=== PATIENT | female | born 1965 | race Caucasian/White ===

== ENCOUNTER → 2017-01-04 | Outpatient (CLI) | payer BC ==
[~2017-01-04] MED LIST: ASPI1TAB83 PO; BUPR75TA8 PO; CALCTAB65 PO; FBR PO; FERR1TAB24 PO; GLIP-197 PO; LISI20TA3 PO; LPT/40 PO; METF1000 PO; MULTTAB58 PO; OMEG-112 PO; OXYC-57 PO; SERT-234 PO; ZNTT/150 PO
--- NOTE | 2017-01-04 07:54 | DIAGNOSTIC IMAGING REPORT ---
ABDOMINAL ULTRASOUND, RIGHT UPPER QUADRANT HISTORY: Abdominal pain. COMPARISON: None. FINDINGS: This exam was compromised by suboptimal penetration. Hepatic echogenicity is increased consistent with fatty infiltration. The liver is moderately enlarged. No biliary ductal dilatation is present. No gallstones are identified. There is no gallbladder wall thickening. The pancreatic body is normal. The head and tail are obscured. There is no right hydronephrosis. IMPRESSION: 1. Fatty infiltration of the liver and hepatomegaly. 2. No gallstones or biliary ductal dilatation. 3. Study compromised by suboptimal penetration. Partially obscured pancreas. Electronically signed by: Bernardino Goldberg M.D. 01/04/2017 7:52 AM Dictated Date/Time: 01/04/2017 7:41 AM
== END | disposition home or self-care (01) ==
LOC: C.ULTR 06:28
PROVIDERS: ATTEND Family Medicine
DX: R10.84 Generalized abdominal pain (principal)

== ENCOUNTER 2024-12-22 16:10 | Inpatient (IN) ==
[2024-12-22 17:55] LABS: Hematocrit (blood only) 45.9 % (37.0-47.0); Hemoglobin 15.1 g/dl (12.0-16.0); Mean Corpuscular Hemoglobin 28.6 pg (25.0-34.0); Mean Corpuscular Hgb Conc 32.9 g/dL (32.0-36.0); Mean Corpuscular Volume 86.9 fL (80.0-100.0); Mean Platelet Volume 10.7 fL (9.4-12.4); Platelet Count 319 K/uL (130-400); RDW Coefficient of Variation 14.4 % (11.5-14.5); RDW Standard Deviation 44.6 fL (36.4-46.3); Red Blood Count 5.28 M/uL (4.20-5.40)
--- NOTE | 2024-12-22 17:59 | Emergency Department Note ---
Impression & Plan Acute non-ST elevation myocardial infarction (NSTEMI), Elevated troponin I level, Nausea & vomiting ED Provider Note NAME: Sid SAEZ AGE: 59 SEX: F : 1965 ARRIVES VIA: Walk-In INFORMANT: Patient, ED PROVIDER(S): Anshul Mcgill DO CHIEF COMPLAINT: Vomiting HPI: The patient is a 59-year-old female who presented to the emergency department with family for an evaluation of nausea vomiting and diarrhea. The patient started having nausea and vomiting over the course of the day. She started having symptoms at 9:00 this morning. Route the afternoon she did start noticing some abdominal discomfort which was crampy and intermittent. It was only associated with the episode before vomiting. The patient also has chest pain. She describes the chest pain that started this afternoon and was constant. She denies having any difficulty breathing or leg swelling. She denies having any rectal bleeding. ROS: See above HPI for pertinent positives & negatives. A total of 10 systems reviewed and were otherwise negative. PAST MEDICAL HISTORY: See Below PAST SURGICAL HISTORY: See Below FAMILY HISTORY: See Below SOCIAL HISTORY: See Below HOME MEDICATIONS: See Below ALLERGIES: See Below VITALS: See Below PHYSICAL EXAMINATION: GENERAL: The patient is awake and alert. The patient is very anxious and appears to be uncomfortable. EYES: The conjunctivae are clear. The pupils are round and reactive. EARS, NOSE, MOUTH AND THROAT: The nose is without any evidence of any deformity. NECK: The neck is nontender and supple. RESPIRATORY: Normal respiratory effort is noted there is no evidence of wheezing rhonchi or rales CARDIOVASCULAR: Regular rate and rhythm noted there no murmurs rubs or gallops normal S1 normal S2. GASTROINTESTINAL: The abdomen is soft. Abdomen is nontender. MUSCULOSKELETAL/EXTREMITIES: There is no evidence of gross deformity full range of motion is noted in the hips and shoulders. SKIN: There is no obvious evidence of any rash. There are no petechiae, pallor or cyanosis noted. NEUROLOGIC: Patient is awake alert and oriented x3 MEDICAL DECISION MAKING: The patient is a 59-year-old female who presented to the emergency department for nausea and vomiting. The patient does have a history of type 2 diabetes. She also describes some degree of chest pain which began after she was vomiting multiple times. The patient had an EKG done in triage. I did evaluate the EKG and was it appears to be consistent with ST segment abnormalities. There is no definite ST segment elevation MS although with the bundle branch block pattern noted it may be difficult to interpret this EKG. There are some definite changes compared to the old EKG. I discussed the patient's presentation with the outreach consultant. Given the patient's nausea and vomiting we will treat the patient's pain and reevaluate to determine if this truly does represent an ST segment elevation MS versus an NSTEMI. The patient was reevaluated. She was feeling better. I discussed the patient's laboratory and radiographic studies with her. She was found to have an elevated troponin. I do feel this likely represents an underlying cardiac abnormality. I discussed her condition with the on-call [facility]. I did order heparin. Triage Nursing notes reviewed. Prior medical records reviewed Vital Signs: reviewed and remarkable for no significant abnormalities Differential diagnosis: Gastroenteritis, food borne illness, infections, appendicitis, diverticulitis, inflammatory bowel disease, obstruction, GI bleed, biliary pathology, volvulus, as well as other pathologies. ER treatment provided: See below Diagnostics interpreted by me: ECG: EKG was obtained in the emergency department. My interpretation is normal sinus rhythm at 100 bpm. A right bundle branch block pattern was noted. ST segment elevation was noted in the inferior and low lateral leads. This was compared to a tracing from April 13, 2023. The ST elevation is new compared to the previous tracing. Cardiac Monitoring: An order was placed for continuous cardiac monitoring. The monitor shows a rate of 98 bpm with sinus rhythm. Laboratory studies: As stated above and show below. Imaging studies: See below. Radiographic imaging was reviewed by myself Consultation(s): I discussed this case with Dr. Jensen who is on for interventional cardiology. I discussed this case with Dr. Gibbs who is on-call for the [facility]. ED COURSE: Procedures: none Critical Care: I have personally spent greater than 40 minutes of critical care time in the direct management of this patient. This includes bedside care, interpretation of diagnostic studies, and testing, discussion with consultants, patient, and family members, and other required patient management activities. This 40 minutes is in excess of all separately billable procedures. 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 Pilar cyst Obesity, Class III, BMI 40-49.9 (morbid obesity) Carpal tunnel syndrome of left wrist Achilles tendinitis, left leg Mixed hyperlipidemia (Chronic) Hypertension Medical History Family history of reaction to anesthesia father has a very difficult time coming out of anesthesia Hypertension Abdominal bloating Abdominal fullness Anxiety History of anesthesia reaction difficulty waking GERD (gastroesophageal reflux disease) Diabetes mellitus, type 2 IDDM Depression Hyperlipidemia Sleep apnea cpap Surgical History History of tenotomy (~06/2023) left achilles Hx of bilateral cataract extraction History of abdominal surgery removal of gastric band Hx of laparoscopic gastric banding History of dilatation and curettage History of carpal tunnel surgery of right wrist History of lumbar discectomy History of lumbar spinal fusion hardware in place History of colonoscopy History of esophagogastroduodenoscopy (EGD) History of tooth extraction History of wisdom tooth extraction Family History Father Family history of reaction to anesthesia severe difficulty waking, low heart rate Family history of diabetes mellitus Brother Family history of diabetes mellitus Aunt Family history of diabetes mellitus Mother Family hx of colon cancer Social History Smoking Status: Never smoker Second Hand Exposure: No; Do You Dip or Chew Tobacco: No; Hx Alcohol Use: Yes Alcohol type: wine Hx Substance Use: No Preferred Language: Cameroonian Communication Ability: Effective Terrazzo Worker Required: No Beliefs That Will Affect Care: None Current Living Situation: Family Current Living Situation Comment: Lives with and mother Feels Safe at Home: Yes Assistive Devices: CPAP and Glasses Allergies Allergies Allergy/AdvReac Type Severity Reaction Status Date / Time No Known Allergies Allergy Unknown Verified 12/12/24 08:34 Home Meds Home Medications Medication Instructions Recorded Confirmed omega-3 acid ethyl esters 1 gram 1 cap PO QPM 11/29/18 12/22/24 capsule bupropion HCl 75 mg tablet 75 mg PO QAM 10/07/21 12/22/24 famotidine 40 mg tablet 40 mg PO QPM 10/07/21 12/22/24 sertraline 50 mg tablet 50 mg PO QPM 10/07/21 12/22/24 cyanocobalamin (vitamin B-12) 1,000 mcg PO QPM 11/23/21 12/22/24 1,000 mcg tablet (Vitamin B-12) atorvastatin 40 mg tablet 40 mg PO QPM 02/07/22 12/22/24 blood sugar diagnostic (Accu-Chek 05/17/22 12/22/24 Guide test strips) aspirin 81 mg tablet,delayed 81 mg PO QAM 06/27/23 12/22/24 release lisinopril 40 mg tablet 40 mg PO QAM 06/27/23 12/22/24 insulin glargine U-300 conc 300 70 unit subcut QPM 12/22/24 12/22/24 unit/mL (1.5 mL) subcutaneous pen (Tousadie SoloStar U-300 Insulin) [id number] 1 tab PO QAM 12/22/24 12/22/24 tablet (Multivitamin 50 Plus tablet) pantoprazole 40 mg tablet,delayed 40 mg PO QAM 12/22/24 12/22/24 release Previous Rx's Medication Instructions Recorded acetone (urine) test (Ketostix #25 ea 02/07/22 strips) metformin 500 mg tablet,extended 1,000 mg (2 x 500 mg) PO QPM #180 12/06/23 release 24 hr tabs semaglutide 1 mg/dose (4 mg/3 mL) 1 mg (0.75 mL) subcut Q7D #3 mL 02/21/24 subcutaneous pen injector pen needle, diabetic 32 gauge x #200 ea 05/15/24 1/4" (BD Ultra-Fine Micro Pen Needle) blood-glucose transmitter (Dexcom #1 ea 06/24/24 G6 Transmitter device) insulin aspart U-100 100 unit/mL 75 unit (0.75 mL) subcut UD #30 mL 08/25/24 (3 mL) subcutaneous pen (Novolog FlexPen U-100 Insulin aspart) blood-glucose sensor (Dexcom G6 #9 ea 10/29/24 Sensor device) Results & Data (ED) Vital Signs Vital Signs - 24 hr 12/22/24 17:19 12/22/24 18:12 12/22/24 18:30 Temperature 36.0 C L Temperature Source Temporal Artery Scan Pulse Rate 97 H 94 H 92 H Pulse Rate from SpO2 Sensor Respiratory Rate 20 18 Respiratory Effort / Characteristics Non-Labored Spontaneous Respiratory Depth Normal Respiratory Pattern Regular Blood Pressure 156/88 H 151/90 H Blood Pressure Mean 110 122 Pulse Oximetry 97 Oxygen Delivery Method Room Air Sepsis Recent Fever Within 48 Hours No Sepsis New/Unexplained Change in Mental Status No Sepsis Action Taken by Nursing No Action Required 12/22/24 18:45 12/22/24 19:00 12/22/24 20:06 Temperature Temperature Source Pulse Rate 98 H 99 H 100 H Pulse Rate from SpO2 Sensor 100 H Respiratory Rate 17 18 21 Respiratory Effort / Characteristics Respiratory Depth Respiratory Pattern Blood Pressure 144/95 H 149/94 H 132/84 Blood Pressure Mean 113 112 100 Pulse Oximetry 95 95 Oxygen Delivery Method Room Air Room Air Sepsis Recent Fever Within 48 Hours Sepsis New/Unexplained Change in Mental Status Sepsis Action Taken by Long Term Medications Current Medication List: was personally reviewed by me Laboratory Data Attestation: I reviewed the patient's lab results. 12/22/24 17:31 12/22/24 17:31 Lab Results 12/22/24 12/22/24 Range/Units 17:31 19:23 WBC 17.90 H (4.8-10.8) K/ul RBC 5.28 (4.20-5.40) M/uL Hgb 15.1 (12.0-16.0) g/dl Hct 45.9 (37.0-47.0) % MCV 86.9 (80.0-100.0) fL MCH 28.6 (25.0-34.0) pg MCHC 32.9 (32.0-36.0) g/dL RDW Std Deviation 44.6 (36.4-46.3) fL RDW Coeff of Landry 14.4 (11.5-14.5) % Plt Count 319 (130-400) K/uL MPV 10.7 (9.4-12.4) fL Immature Gran % (Auto) 0.4 % Neut % (Auto) 94.5 % Lymph % (Auto) 1.5 % George % (Auto) 3.3 % Eos % (Auto) 0.1 % Baso % (Auto) 0.2 % Neut # (Auto) 16.93 H (1.40-6.50) K/uL Lymph # (Auto) 0.26 L (1.20-3.40) K/uL George # (Auto) 0.59 (0.11-0.59) K/uL Eos # (Auto) 0.01 (0.00-0.50) K/uL Baso # (Auto) 0.04 (0.00-0.20) K/uL Immature Gran # (Auto) 0.07 (0.01-0.20) K/uL Toxic Vacuolation 1+ Polychromasia 1+ Sodium 137 (136-145) mmol/L Potassium 5.0 (3.5-5.1) mmol/L Chloride 101 (98-107) mmol/L Carbon Dioxide 27 (21-32) mmol/L Anion Gap 9 (3-11) BUN 23 (6-23) mg/dl Creatinine 0.96 (0.6-1.2) mg/dl Est Cr Clr Drug Dosing Not Reportable eGFR 67.31 BUN/Creatinine Ratio 24.0 H (10-20) Glucose 243 H (70-99(Fasting)) mg/dl Calcium 9.6 (8.6-10.3) mg/dl Total Bilirubin 0.7 (0.2-1.0) mg/dl AST 24 (13-39) U/L ALT 31 (7-52) U/L Alkaline Phosphatase 81 (34-104) U/L Troponin I High Sens 282.4 H* (0-14) pg/ml Total Protein 7.3 (6.0-8.3) gm/dl Albumin 4.5 (3.4-5.0) gm/dl Globulin 2.8 (2.5-4.0) gm/dl Albumin/Globulin Ratio 1.6 (0.9-2) Lipase 9 L (11-82) U/L Urine Color Dark Yellow Urine Appearance Clear (Clear) Urine pH 6.0 (4.5-7.5) Ur Specific [place] 1.031 H (1.000-1.030) Urine Protein 1+ H (Negative) Urine Glucose (UA) Negative (Negative) Urine Ketones Trace H (Negative) Urine Blood Negative (Negative) Urine Nitrite Negative (Negative) Urine Bilirubin Negative (Negative) Urine Urobilinogen Negative (Negative) Ur Leukocyte Esterase Negative (Negative) Urine WBC (Auto) 0-5 (0-5) /hpf Urine RBC (Auto) 0-2 (0-2) /hpf U Hyaline Cast (Auto) 0-2 (0-2) /lpf U Epithel Cells (Auto) 0-2 (0-2) /hpf Urine Bacteria (Auto) None Seen (None Seen) Administered Medications Heparin Sodium/Dextrose (Heparin 26378 Unit/500 Ml D5w) 25,000 units in 500 mls @ 19 mls/hr IV .Q24H CINDI; Protocol Stop: 01/21/25 20:14 Last Admin: 12/22/24 20:59 Dose: 950 units/hr, 19 mls/hr Documented By: FELIX Co-signed By: ESTRADA Discontinued Medications Aspirin (Aspirin Chew 324 Mg) 324 mg PO NOW STA Stop: 12/22/24 17:49 Last Admin: 12/22/24 18:24 Dose: Not Given Documented By: ROQUE Aspirin (Aspirin 300 Mg Supp) 300 mg KS ONE ONE Stop: 12/22/24 17:56 Last Admin: 12/22/24 18:16 Dose: 300 mg Documented By: ROQUE Heparin Sodium/Dextrose (Heparin Iv Adult Wt-Based Low-Dose *No* Initial Bolus Protocol) 1 each IV ONE STA; Protocol Stop: 12/22/24 19:56 Last Admin: 12/22/24 20:48 Dose: Not Given Documented By: FELIX Sodium Chloride (Nss) 1,000 mls @ 999 mls/hr IV .Q1H1M ONE Stop: 12/22/24 18:41 Last Infusion: 12/22/24 20:55 Dose: Infused Documented By: Admin: 12/22/24 18:13 Dose: 999 mls/hr Documented By: ROQUE Morphine Sulfate (Morphine Sulfate 4 Mg/Ml 1 Ml Carp\\Vial) 4 mg IV NOW STA Stop: 12/22/24 17:56 Last Admin: 12/22/24 18:14 Dose: 4 mg Documented By: ROQUE Ondansetron HCl (Ondansetron Inj 2 Mg/Ml 2 Ml Vial) 4 mg IV NOW STA Stop: 12/22/24 17:38 Last Admin: 12/22/24 18:14 Dose: 4 mg Documented By: ROQUE Imaging Data Attestation: I personally reviewed and interpreted this imaging study as follows: My Impression: 1 view chest x-ray was obtained in the emergency department. My interpretation is no free air or definite infiltrate, final report below. Radiologist's Impression: Chest X-Ray 12/22/24 19:33 Exam(s): XR CXR 1 VIEW EXAM: XR Chest, 1 View CLINICAL HISTORY: Reason for exam: chest pain. TECHNIQUE: Frontal view of the chest. COMPARISON: No relevant prior studies available. FINDINGS: Lungs: No consolidation. No overt edema. Pleural space: No pleural effusion. No pneumothorax. Heart: Unremarkable. No cardiomegaly. IMPRESSION: No acute cardiopulmonary abnormality. Electronically signed by: Connor Ordaz MD 12/22/24 20:30 PM KUB X-Ray 12/22/24 19:33 Exam(s): XR KUB EXAM: XR Abdomen, 1 View CLINICAL HISTORY: Reason for exam: vomiting. TECHNIQUE: Frontal supine view of the abdomen/pelvis. COMPARISON: No relevant prior studies available. FINDINGS: Gastrointestinal tract: Nonobstructive bowel gas pattern. Bones/joints: Postsurgical changes in the lumbar spine. IMPRESSION: Nonobstructive bowel gas pattern. Electronically signed by: Connor Ordaz MD 12/22/24 20:32 PM Discharge Plan Visit Data Chief Complaint: Vomiting Stated Complaint: THROWING UP, DIARRHEA, BURNING IN CHEST/ARMS ED Provider: Anshul Mcgill Discharge Problem: Acute non-ST elevation myocardial infarction (NSTEMI), Elevated troponin I level, Nausea & vomiting Patient Disposition: Being Evaluated by Hospitalist Forms Stand Alone Forms: My [facility] Arrively Prescriptions Prescriptions: No Action semaglutide 1 mg/dose (4 mg/3 mL) pen injector 1 mg subcut Q7D Qty: 3 12RF Patient Comments: mondays Rx Instructions: sunday (DME) pen needle, diabetic [BD Ultra-Fine Micro Pen Needle] 32 gauge x 1/4" needle See Rx Instructions .Route Qty: 200 11RF Rx Instructions: Use with Insulin 4 times a day (DME) Dexcom G6 Transmitter Device See Rx Instructions .Route Qty: 1 3RF Rx Instructions: Change every 90 days insulin aspart U-100 [Novolog FlexPen U-100 Insulin] 100 unit/mL (3 mL) insulin pen 75 unit subcut UD MDD 75 U Qty: 30 5RF Rx Instructions: TDD: 75 U in divided doses with meals. Breakfast 16 units, lunch 24 units, supper 30 units, + correction factor of 1 unit for every 50 points over 200 (DME) Dexcom G6 Sensor Device See Rx Instructions .Route Qty: 9 3RF Rx Instructions: Change every 10 days bupropion HCl 75 mg tablet 75 mg PO QAM famotidine 40 mg tablet 40 mg PO QPM sertraline 50 mg tablet 50 mg PO QPM (DME) Accu-Chek Guide test strips Strip See Rx Instructions .Route Rx Instructions: Test blood sugar once daily PRN metformin 500 mg tablet extended release 24 hr 1,000 mg PO QPM Qty: 180 2RF atorvastatin 40 mg tablet 40 mg PO QPM (DME) Ketostix Strip See Rx Instructions .ROUTE .MEDSUPPLY Qty: 25 3RF Rx Instructions: Test if Glucose over 375 omega-3 acid ethyl esters 1 gram Capsule 1 cap PO QPM cyanocobalamin (vitamin B-12) [Vitamin B-12] 1,000 mcg Tablet 1,000 mcg PO QPM aspirin 81 mg tablet,delayed release (DR/EC) 81 mg PO QAM lisinopril 40 mg tablet 40 mg PO QAM Multivitamin 50 Plus Tablet 1 tab PO QAM pantoprazole 40 mg Tablet,Delayed Release (Dr/Ec) 40 mg PO QAM insulin glargine U-300 conc [Toujeo SoloStar U-300 Insulin] 300 unit/mL (1.5 mL) insulin pen 70 unit subcut QPM Referrals Referrals: Tank Gutierrez, [Primary Care Provider] -
[2024-12-22 18:11] LABS: Alanine Aminotransferase 31 U/L (7-52); Albumin Globulin Ratio 1.6 (0.9-2); Albumin Level 4.5 gm/dl (3.4-5.0); Alkaline Phosphatase 81 U/L (34-104); Anion Gap 9 (3-11); Aspartate Aminotransferase 24 U/L (13-39); Bilirubin,Total 0.7 mg/dl (0.2-1.0); Blood Urea Nitrogen 23 mg/dl (6-23); Calcium 9.6 mg/dl (8.6-10.3); Carbon Dioxide 27 mmol/L (21-32); Chloride 101 mmol/L (98-107); Globulin 2.8 gm/dl (2.5-4.0); Glucose 243 mg/dl (70-99(Fasting)); Lipase 9 U/L (11-82); Sodium 137 mmol/L (136-145); Total Protein 7.3 gm/dl (6.0-8.3)
[2024-12-22] MEDS: SODIUM CHLORIDE 0.9% 1,000 ML IV ONE (18:13)
[2024-12-22] MEDS: ONDANSETRON INJ 2 MG/ML 2 ML VIAL IV STA (18:14)
[2024-12-22] MEDS: MoRPHine SULFATE 4 MG/ML 1 ML CARP\\VIAL IV STA (18:14)
[2024-12-22] MEDS: ASPIRIN 300 MG SUPP PR ONE (18:16)
[2024-12-22 18:19] LABS: Basophils # (auto) 0.04 K/uL (0.00-0.20); Basophils % (auto) 0.2 %; Eosinophils # (auto) 0.01 K/uL (0.00-0.50); Eosinophils % (auto) 0.1 %; Immature Granulocytes # (auto) 0.07 K/uL (0.01-0.20); Immature Granulocytes % (auto) 0.4 %; Lymphocytes # (auto) 0.26 K/uL (1.20-3.40); Lymphocytes % (auto) 1.5 %; Monocytes # (auto) 0.59 K/uL (0.11-0.59); Monocytes % (auto) 3.3 %; Neutrophils # (auto) 16.93 K/uL (1.40-6.50); Neutrophils % (auto) 94.5 %; Polychromasia 1+; Toxic Vacuolation 1+
[2024-12-22] MEDS: ASPIRIN CHEW 324 MG PO STA (18:24)
[2024-12-22 19:53] LABS: Troponin I High Sensitivity 282.4 pg/ml (0-14)
[2024-12-22 19:57] LABS: Appearance Urine Clear (Clear); Bacteria Urine Automated None Seen (None Seen); Bilirubin Urine Negative (Negative); Blood Urine Negative (Negative); Cast Urine Automated 0-2 /lpf (0-2); Color Urine Dark Yellow; Epithelial Cell Urine Auto 0-2 /hpf (0-2); Glucose Urine UA Negative (Negative); Ketones Urine Trace (Negative); Leukocyte Esterase Urine Negative (Negative); Nitrite Urine Negative (Negative); Protein Urine 1+ (Negative); RBC Urine Automated 0-2 /hpf (0-2); Specific Gravity Urine 1.031 (1.000-1.030); Urobilinogen Urine Negative (Negative); WBC Urine Automated 0-5 /hpf (0-5)
--- NOTE | 2024-12-22 20:31 | XRay Report ---
Exam(s): XR CXR 1 VIEW EXAM: XR Chest, 1 View CLINICAL HISTORY: Reason for exam: chest pain. TECHNIQUE: Frontal view of the chest. COMPARISON: No relevant prior studies available. FINDINGS: Lungs: No consolidation. No overt edema. Pleural space: No pleural effusion. No pneumothorax. Heart: Unremarkable. No cardiomegaly. IMPRESSION: No acute cardiopulmonary abnormality. Electronically signed by: Connor Ordaz MD 12/22/24 20:30 PM
--- NOTE | 2024-12-22 20:34 | XRay Report ---
Exam(s): XR KUB EXAM: XR Abdomen, 1 View CLINICAL HISTORY: Reason for exam: vomiting. TECHNIQUE: Frontal supine view of the abdomen/pelvis. COMPARISON: No relevant prior studies available. FINDINGS: Gastrointestinal tract: Nonobstructive bowel gas pattern. Bones/joints: Postsurgical changes in the lumbar spine. IMPRESSION: Nonobstructive bowel gas pattern. Electronically signed by: Connor Ordaz MD 12/22/24 20:32 PM
[2024-12-22] MEDS: Heparin IV Adult Wt-Based Low-Dose *NO* INITIAL Bolus Protocol IV STA (20:48)
[2024-12-22] MEDS: HEPARIN 25000 UNIT/500 ML D5W 25,000 UNITS/500 ML BAG IV SCH (20:59)
--- NOTE | 2024-12-22 21:26 | History & Physical Report ---
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 ED evaluation reveals CBC WBC 17.90, CMP with ratio to 24, lipase 9; initial troponin 282.4, pending repeat; PT/INR pending; CXR without acute findings, KUB with nonobstructive bowel gas patterns; EKG NSR, RBBB, rate around 100 bpm. Provided with NSS 1L, Zofran, morphine, aspirin, and started on heparin while in ED. #Chest pain/NSTEMI Chest pain started around 1400 after multiple episodes of N/V, radiation to R arm and back (between shoulder blades); duration of symptoms vary; described as chest pressure and with burning sensation down R arm. At time of admission, CP free but having some tightness in chest. ED provider and cardiology team discussed case, recommended admission with no plans for Transmitter Tester at time of admi ssion given current findings. - EKG at arrival NSR w/ RBBB and rate 100 bpm; Trop #1 - 282.4, trop #2 3207, trend to peak - CBC w/ leukocytosis (17.9k); PT/INR 11/; Mg pending; echo pending - Lipid panel (11/2024) total 121, LDL 62, HDL 41, TG 101; continue atorvastatin - Continue ASA daily; continue lisinopril - Heparin started in ED- continue - Cardiology consulted - appreciate input + recs #Nausea/Vomiting N/V x ~ 12-13x the day of arrival; no known contacts and no recent food intake concerning for illness - CBC w/ leukocytosis (17.9k), CMP grossly WNL- CBC, BMP am - KUB nonobstructive pattern - Pending stool biofire - IVF given in ED #T2DM H/o DMT2; at home regimen basaglar 70U, Novolog (16U breakfast, 24U lunch, 30U dinner), ozempic 1mg, metformin 1000mg - Hold outpatient regimen - Most recent A1C (11/2024) 7% - SSI with target BSG range 110-140mg/dL, CF 10, carb ratio 3; glargine 46 U BID - BSG ACHS if eating, q6h if npo - Pharm glycemic management consult placed, appreicate input- Adjust regimen as needed #HLD- Atorvastatin #HTN- Lisinopril #JOSH- CPAP, continue #GERD- Famotidine, pantoprazole #Depression- Sertraline, bupropion Dispo: Admit, PCU VTE Prophylaxis: Heparin This document was dictated utilizing [employer] Please excuse any grammatical errors that may be secondary to use of this software. Admission and Anticipated Discharge Date Admission Date: 12/22/2024 History of Present Illness Chief Complaint: Chest pain Primary Care Provider: Tank Gutierrez DO 59-year-old female PMHx HTN, GERD, T2DM, HLD, sleep apnea with CPAP, and depression presenting for chest pain associated N/V. Vomiting began at 0900 the day of arrival, occurring approximately 12-13 times throughout the day with the most recent occurrence being 1430. Around 1400, patient started to develop chest pain in her central chest which felt like a pressure/tightness and was an 8-9 out of 10 on the pain scale at its maximum. The pain radiated to her R arm and had a burning sensation. Also had radiation of pain between shoulder blades. Had had episodes of diarrhea, abdominal pain occurring just prior to e pisodes of vomiting. Patient states that she was not exposed to any sick contacts, did not eat anything additionally extremitas. Current complaint is a patient states she is still having some tightness in her chest but that has resolved some since having pain medications. Also feels weak from multiple episodes of vomiting and diarrhea. Patient states she has not had this happen before. States that she called her PCP who encouraged her to come to the ED because she was having chest pain that was radiating. ED evaluation reveals CBC WBC 17.90, CMP with ratio to 24, lipase 9; initial troponin 282.4, pending repeat; PT/INR pending; CXR without acute findings, KUB with nonobstructive bowel gas patterns; EKG NSR, RBBB, rate around 100 bpm. Provided with NSS 1L, Zofran, morphine, aspirin, and started on heparin while in ED. Please see Dr. Gibbs's attestation for adjustments/additions to treatment plan. Allergies Allergy/AdvReac Type Severity Reaction Status Date / Time No Known Allergies Allergy Unknown Verified 12/12/24 08:34 Home Medications Medication Instructions Recorded Confirmed Type omega-3 acid ethyl esters 1 gram 1 cap PO QPM 11/29/18 12/22/24 History capsule bupropion HCl 75 mg tablet 75 mg PO QAM 10/07/21 12/22/24 History famotidine 40 mg tablet 40 mg PO QPM 10/07/21 12/22/24 History sertraline 50 mg tablet 50 mg PO QPM 10/07/21 12/22/24 History cyanocobalamin (vitamin B-12) 1,000 mcg PO QPM 11/23/21 12/22/24 History 1,000 mcg tablet (Vitamin B-12) acetone (urine) test (Ketostix #25 ea 02/07/22 12/22/24 Rx strips) atorvastatin 40 mg tablet 40 mg PO QPM 02/07/22 12/22/24 History blood sugar diagnostic (Accu-Chek 05/17/22 12/22/24 History Guide test strips) aspirin 81 mg tablet,delayed 81 mg PO QAM 06/27/23 12/22/24 History release lisinopril 40 mg tablet 40 mg PO QAM 06/27/23 12/22/24 History metformin 500 mg tablet,extended 1,000 mg (2 x 500 mg) PO QPM #180 12/06/23 12/22/24 Rx release 24 hr tabs semaglutide 1 mg/dose (4 mg/3 mL) 1 mg (0.75 mL) subcut Q7D #3 mL 02/21/24 12/22/24 Rx subcutaneous pen injector pen needle, diabetic 32 gauge x #200 ea 05/15/24 12/22/24 Rx 1/4" (BD Ultra-Fine Micro Pen Needle) blood-glucose transmitter (Dexcom #1 ea 06/24/24 12/22/24 Rx G6 Transmitter device) insulin aspart U-100 100 unit/mL 75 unit (0.75 mL) subcut UD #30 mL 08/25/24 12/22/24 Rx (3 mL) subcutaneous pen (Novolog FlexPen U-100 Insulin aspart) blood-glucose sensor (Dexcom G6 #9 ea 10/29/24 12/22/24 Rx Sensor device) insulin glargine U-300 conc 300 70 unit subcut QPM 12/22/24 12/22/24 History unit/mL (1.5 mL) subcutaneous pen (Toujeo SoloStar U-300 Insulin) [id number] 1 tab PO QAM 12/22/24 12/22/24 History tablet (Multivitamin 50 Plus tablet) pantoprazole 40 mg tablet,delayed 40 mg PO QAM 12/22/24 12/22/24 History release Past Med/Surg History Problem List (Updated 12/22/24 @ 21:29 by Molly Stacy PA-C) Chest pain Nausea & vomiting (Acute) Elevated troponin I level (Acute) Acute non-ST elevation myocardial infarction (NSTEMI) (Acute) Fatty liver Dyskinesis of right scapula Calcific tendonitis of left shoulder Adhesive capsulitis 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 Pilar cyst Obesity, Class III, BMI 40-49.9 (morbid obesity) Carpal tunnel syndrome of left wrist Achilles tendinitis, left leg Mixed hyperlipidemia (Chronic) Hypertension Medical History Family history of reaction to anesthesia father has a very difficult time coming out of anesthesia Hypertension Abdominal bloating Abdominal fullness Anxiety History of anesthesia reaction difficulty waking GERD (gastroesophageal reflux disease) Diabetes mellitus, type 2 IDDM Depression Hyperlipidemia Sleep apnea cpap Surgical History History of tenotomy (~06/2023) left achilles Hx of bilateral cataract extraction History of abdominal surgery removal of gastric band Hx of laparoscopic gastric banding History of dilatation and curettage History of carpal tunnel surgery of right wrist History of lumbar discectomy History of lumbar spinal fusion hardware in place History of colonoscopy History of esophagogastroduodenoscopy (EGD) History of tooth extraction History of wisdom tooth extraction Family History Father Family history of reaction to anesthesia severe difficulty waking, low heart rate Family history of diabetes mellitus Brother Family history of diabetes mellitus Aunt Family history of diabetes mellitus Mother Family hx of colon cancer Social History Smoking Status: Never smoker Second Hand Exposure: No; Do You Dip or Chew Tobacco: No; Hx Alcohol Use: Yes Alcohol type: wine Hx Substance Use: No Preferred Language: Japanese Communication Ability: Effective Ip Architect Required: No Beliefs That Will Affect Care: None Current Living Situation: Family Current Living Situation Comment: Lives with and mother Feels Safe at Home: Yes Assistive Devices: CPAP and Glasses Review of Systems Review of Systems: All systems reviewed & are unremarkable except as noted in Subjective Physical Exam Physical Exam: General: No acute distress Skin: Warm and dry Head: Normocephalic, atraumatic Eyes: PERRL, conjunctivae clear, sclera non-icteric ENT: External ear and ear canal without swelling; nose atraumatic; good dentition, tongue normal appearance, pharynx normal but appears dry Neck: Supple, no LAD; no JVD Cardio: RRR, no M/G/R, S1 and S2 normal; no tenderness to palpation of chest Resp: No respiratory distress, Lungs CTA in all lobes bilaterally, no wheezes, rales, or rhonchi Abdomen: Soft, symmetric, nontender; No masses or hepatosplenomegaly; Bowel sounds normoactive MSK: No deformities, full ROM throughout; pulses palpable and equal; no edema. Neuro: Awake, alert; CN grossly intact Psych: Appropriate mood and affect; good judgement and insight. present in room at time of visit. Results & Data Results & Data Vital Signs (Past 12 Hours) Vital Signs Temp Pulse Resp BP Pulse Ox O2 Del Method 12/22/24 20:06 100 H 21 132/84 95 Room Air 12/22/24 19:00 99 H 18 149/94 H 95 Room Air 12/22/24 18:45 98 H 17 144/95 H 12/22/24 18:30 92 H 18 151/90 H 12/22/24 18:12 94 H 12/22/24 17:19 36.0 C L 97 H 20 156/88 H 97 Room Air Laboratory Results 12/22/24 12/22/24 19:23 17:31 WBC 17.90 H RBC 5.28 Hgb 15.1 Hct 45.9 MCV 86.9 MCH 28.6 MCHC 32.9 RDW Std Deviation 44.6 RDW Coeff of Landry 14.4 Plt Count 319 MPV 10.7 Immature Gran % (Auto) 0.4 Neut % (Auto) 94.5 Lymph % (Auto) 1.5 [place] % (Auto) 3.3 Eos % (Auto) 0.1 Baso % (Auto) 0.2 Neut # (Auto) 16.93 H Lymph # (Auto) 0.26 L [place] # (Auto) 0.59 Eos # (Auto) 0.01 Baso # (Auto) 0.04 Immature Gran # (Auto) 0.07 Toxic Vacuolation 1+ Polychromasia 1+ Sodium 137 Potassium 5.0 Chloride 101 Carbon Dioxide 27 Anion Gap 9 BUN 23 Creatinine 0.96 Est Cr Clr Drug Dosing Not Reportable eGFR 67.31 BUN/Creatinine Ratio 24.0 H Glucose 243 H Calcium 9.6 Total Bilirubin 0.7 AST 24 ALT 31 Alkaline Phosphatase 81 Troponin I High Sens 282.4 H* Total Protein 7.3 Albumin 4.5 Globulin 2.8 Albumin/Globulin Ratio 1.6 Lipase 9 L Urine Color Dark Yellow Urine Appearance Clear Urine pH 6.0 Ur Specific Harmony 1.031 H Urine Protein 1+ H Urine Glucose (UA) Negative Urine Ketones Trace H Urine Blood Negative Urine Nitrite Negative Urine Bilirubin Negative Urine Urobilinogen Negative Ur Leukocyte Esterase Negative Urine WBC (Auto) 0-5 Urine RBC (Auto) 0-2 U Hyaline Cast (Auto) 0-2 U Epithel Cells (Auto) 0-2 Urine Bacteria (Auto) None Seen Diagnostic Findings Chest X-Ray 12/22/24 19:33 Exam(s): XR CXR 1 VIEW EXAM: XR Chest, 1 View CLINICAL HISTORY: Reason for exam: chest pain. TECHNIQUE: Frontal view of the chest. COMPARISON: No relevant prior studies available. FINDINGS: Lungs: No consolidation. No overt edema. Pleural space: No pleural effusion. No pneumothorax. Heart: Unremarkable. No cardiomegaly. IMPRESSION: No acute cardiopulmonary abnormality. Electronically signed by: Connor Ordaz MD 12/22/24 20:30 PM KUB X-Ray 12/22/24 19:33 Exam(s): XR KUB EXAM: XR Abdomen, 1 View CLINICAL HISTORY: Reason for exam: vomiting. TECHNIQUE: Frontal supine view of the abdomen/pelvis. COMPARISON: No relevant prior studies available. FINDINGS: Gastrointestinal tract: Nonobstructive bowel gas pattern. Bones/joints: Postsurgical changes in the lumbar spine. IMPRESSION: Nonobstructive bowel gas pattern. Electronically signed by: Connor Ordaz MD 12/22/24 20:32 PM Medications Administered NSS 1L Zofran 4 mg IV Morphine 4 mg IV Heparin IV Aspirin ECG Additional Comments: NSS, RBBB 100 bpm, SC 156, QRS 122, QT/QTc 388/500, PRT 51/264/31 Code Status & VTE Plan Code Status Full VTE Prophylaxis Plan VTE Prophylaxis will be ordered: Yes PG Care Time/CCT Total # of Minutes Spent Total Time Spent with Patient: Total time spent is greater than 50% in coordination of care (as documented) at patient's floor/unit and/or counseling patient: Coding Level of Care Code 77572 INT INP/OBS CARE 3/75MIN Diagnoses Chest pain R07.9 Acute non-ST elevation myocardial infarction (NSTEMI) I21.4 Nausea & vomiting R11.2 Type 2 diabetes mellitus with both eyes affected by mild nonproliferative retinopathy without macular edema, with long-term current use of insulin E11.3293; Z79.4 Diabetes mellitus termite control servicer insulin use: with nursing home use Diabetic retinopathy severity: with mild nonproliferative retinopathy Laterality: bilateral (4) 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
[2024-12-22 21:27] LABS: Troponin I High Sensitivity 3207.6 pg/ml (0-14)
[2024-12-22] MEDS ORDERED: DEXTROSE 50% 50 ML SYRINGE IV PRN (22:56)
[2024-12-22] MEDS ORDERED: GLUCOSE 40% GEL 15 GM TUBE PO PRN (22:56)
[2024-12-22] MEDS ORDERED: GLUCOSE 10 TAB/TUBE PO PRN (22:56)
[2024-12-22] MEDS ORDERED: CARBOHYDRATES FOR HYPOGLYCEMIA PO PRN (22:56)
[2024-12-22] MEDS ORDERED: GLUCAGON FOR INJ 1 MG VIAL SQ PRN (22:56)
[2024-12-22] MEDS ORDERED: PHARMACY GLYCEMIC MGMT CONSULT PRN (22:56)
[2024-12-22 23:12] LABS: Magnesium 1.3 mg/dl (1.7-2.4)
[2024-12-23] MEDS: INSULIN ASPART PER UNIT CHARGE SC SCH ×2 (00:23→17:09)
[2024-12-23] MEDS: LANTUS PER UNIT CHARGE SQ ONE (00:24)
[2024-12-23] MEDS: ACETAMINOPHEN 325 MG TAB PO PRN (01:57)
[2024-12-23 03:24] LABS: ANTI-Xa, UFH(UnfractionatedHep 0.16 IU/ml (0.3-0.7)
[2024-12-23] MEDS ORDERED: MoRPHine SULFATE 4 MG/ML 1 ML CARP\\VIAL IV PRN (04:07)
[2024-12-23] MEDS: HEPARIN SOD (PORCINE) 1000 UNIT/ML IV ONE (04:14)
[2024-12-23 08:57] LABS: BUN Creatinine Ratio 25.3 (10-20); Calcium 8.7 mg/dl (8.6-10.3); Potassium 3.7 mmol/L (3.5-5.1)
[2024-12-23 09:13] LABS: Hematocrit (blood only) 36.5 % (37.0-47.0); Mean Corpuscular Hemoglobin 28.8 pg (25.0-34.0); Mean Corpuscular Hgb Conc 32.9 g/dL (32.0-36.0); Mean Corpuscular Volume 87.5 fL (80.0-100.0); Platelet Count 250 K/uL (130-400); RDW Coefficient of Variation 14.5 % (11.5-14.5); RDW Standard Deviation 45.8 fL (36.4-46.3); Red Blood Count 4.17 M/uL (4.20-5.40)
--- NOTE | 2024-12-23 10:08 | XCELERA ---
[id number]
[2024-12-23] MEDS: ACETAMINOPHEN 1,000 MG/100 ML VIAL IV STA (10:37)
--- NOTE | 2024-12-23 11:42 | Pharmacy Report ---
Pharmacy Glycemic Short Note 2 - Date of Service December 23, 2024 - Glycemic Short BSG Results (Last 24 hours): 12/22/24 12/22/24 12/23/24 17:31 22:18 00:09 Glucose 243 H POC Glucose 175 H 154 H 12/23/24 12/23/24 06:23 07:38 Glucose 124 H POC Glucose 130 H OUTPATIENT ANTIDIABETIC REGIMEN: * Toujeo 70 units SC HS * Aspart with meals: units, plus CF 1 unit for every 50 over 200mg/dl * Metformin 1000mg PO HS * Semaglutide 1mg SC Weekly on Mondays ASSESSMENT: * 59 yo F admitted with CP NSTEMI, N/V, type 2 DM, on heparin drip, and NPO today. * Given 35 units of Lantus last evening, blood sugars at goal while NPO, no NovoLog received today. * Continue basal bolus insulin while inpatient. PLAN FOR INPATIENT GLYCEMIC CONTROL: * Hold outpatient oral diabetes medications * Basal insulin * Lantus 35-45 units SQ HS (35 units for BSG < 180, 45 units for BSG 180 or greater) * Bolus insulin * NovoLog per scale ACHS or Q6hrs while NPO * Goal Range: Low 110 mg/dL - High 140 mg/dL * Correction Factor: 20 mg/dL/unit * Nutritional / Prandial insulin per carb ratio of 1 unit per 7 grams CHO consumed
[2024-12-23] MEDS: NITROGLYCERIN/D5W 100MCG/ML 20ML SYR ONE (12:28)
[2024-12-23] MEDS: niCARdipine 2,000 MCG/20 ML SYR ONE (12:28)
[2024-12-23 12:36] LABS: Magnesium 1.6 mg/dl (1.7-2.4)
--- NOTE | 2024-12-23 12:37 | Pre Anesthesia Assessment ---
Date of Service December 23, 2024 Pre Sedation Assessment Vital Signs Temp Pulse Pulse Pulse Resp BP BP 12/23/24 11:09 78 18 147/75 H 12/23/24 07:55 36.6 C 72 18 137/81 12/23/24 07:06 77 12/23/24 04:09 36.7 C 85 18 156/97 H 12/23/24 00:00 99 H 12/22/24 23:30 12/22/24 23:17 37.2 C 103 H 20 168/93 H 12/22/24 22:24 103 H 14 136/79 12/22/24 22:00 104 H 18 167/107 H 12/22/24 22:00 104 H 12/22/24 21:03 104 H 17 153/87 H 12/22/24 20:06 100 H 21 132/84 12/22/24 19:00 99 H 18 149/94 H 12/22/24 18:45 98 H 17 144/95 H 12/22/24 18:30 92 H 18 151/90 H 12/22/24 18:12 94 H 12/22/24 17:19 36.0 C L 97 H 20 156/88 H Pulse Ox O2 Del Method 12/23/24 11:09 98 Room Air 12/23/24 07:55 95 Room Air 12/23/24 07:06 12/23/24 04:09 95 Room Air 12/23/24 00:00 12/22/24 23:30 Room Air 12/22/24 23:17 94 Room Air 12/22/24 22:24 93 Room Air 12/22/24 22:00 93 Room Air 12/22/24 22:00 12/22/24 21:03 93 Room Air 12/22/24 20:06 95 Room Air 12/22/24 19:00 95 Room Air 12/22/24 18:45 12/22/24 18:30 12/22/24 18:12 12/22/24 17:19 97 Room Air Cardiovascular RRR, no murmur, no edema Respiratory normal respiratory effort, lungs clear to auscultation Pre-Sedation Airway Assessment Smoking Status: Never smoker Hx Sleep Apnea: Yes Short, Thick Neck: No Thyromental Distance: > or= 3.5 Finger Breadths Oral Cavity: + WNL Mallampati Class: III ASA: ASA3 NPO Status Date of Last Intake of Fluids: 12/22/24 Time of Last Intake of Fluids: 21:00 Date of Last Intake of Solid Food: 12/22/24 Time of Last Intake of Solid Foods: 21:00 Notes The planned sedation has been discussed with the patient. Informed Consent was obtained. I have identified the patient, determined the appropriateness of sedation and have assessed the patient immediately prior to the procedure. All medicine(s) and interventions are by my order.
[2024-12-23] MEDS: OPTIRAY 350 ONE (14:00)
[2024-12-23] MEDS: fentaNYL citrate PF 100 MCG/2 ML VIAL ONE (14:01)
[2024-12-23] MEDS: HEPARIN (PORCINE) 1000 UNIT/ML 10 ML (CATH LAB USE ONLY) ONE (14:01)
[2024-12-23] MEDS: MIDAZOLAM HCL 1 MG/ML 2ML VIAL ONE ×2 (14:02)
[2024-12-23] MEDS: hydrALAZINE HCL 20 MG/ML VIAL ONE (14:02)
[2024-12-23] MEDS: ASPIRIN 81 MG CHEW ONE (14:03)
[2024-12-23] MEDS: TICAGRELOR 90 MG TAB ONE (14:03)
--- NOTE | 2024-12-23 14:12 | Post Anesthesia Assessment ---
Date of Service December 23, 2024 Post Sedation Assessment Vital Signs Temp Pulse Pulse Pulse Resp BP BP 12/23/24 11:09 78 18 147/75 H 12/23/24 07:55 36.6 C 72 18 137/81 12/23/24 07:06 77 12/23/24 04:09 36.7 C 85 18 156/97 H 12/23/24 00:00 99 H 12/22/24 23:30 12/22/24 23:17 37.2 C 103 H 20 168/93 H 12/22/24 22:24 103 H 14 136/79 12/22/24 22:00 104 H 18 167/107 H 12/22/24 22:00 104 H 12/22/24 21:03 104 H 17 153/87 H 12/22/24 20:06 100 H 21 132/84 12/22/24 19:00 99 H 18 149/94 H 12/22/24 18:45 98 H 17 144/95 H 12/22/24 18:30 92 H 18 151/90 H 12/22/24 18:12 94 H 12/22/24 17:19 36.0 C L 97 H 20 156/88 H Pulse Ox O2 Del Method 12/23/24 11:09 98 Room Air 12/23/24 07:55 95 Room Air 12/23/24 07:06 12/23/24 04:09 95 Room Air 12/23/24 00:00 12/22/24 23:30 Room Air 12/22/24 23:17 94 Room Air 12/22/24 22:24 93 Room Air 12/22/24 22:00 93 Room Air 12/22/24 22:00 12/22/24 21:03 93 Room Air 12/22/24 20:06 95 Room Air 12/22/24 19:00 95 Room Air 12/22/24 18:45 12/22/24 18:30 12/22/24 18:12 12/22/24 17:19 97 Room Air Recovery Score Activity: Moves 4 extremities Respiration: Deep Breath/Cough Circulation: +/-20% PreAnes Value Consciousness: Fully Awake Oxygen Saturation: > 92% On Room Air Discharge Sedation Level of Care: Fast Track Phase II Post Sedation Plan On clinical assessment, the patient appears to have tolerated the sedation without complications. Patient is recovering as anticipated. Patient will continue to be monitored by nursing and may be discharged when sedation discharge criteria are met per below protocol. Upon Completions of procedure up to 15 minutes continue every 5 minute vital signs and the P.A.R. score; then discharge to a Phase I or Fast Track to Phase II per the following guidelines: * Discharge Patient to appropriate Phase II area if PAR is 8 or greater or return to pre- procedure baseline. The post - procedure orders will be as directed. * If PAR score is less than 8 or not return to pre-procedure baseline then patient will follow Phase I monitoring till PAR is reached for Phase II. The Phase I may be done in procedure room or may call to secure a Phase I area. * If naloxone or flumazenil are used for reversal, hold in Phase I for continued monitoring from when last reversal dose was given for a minimum of 60 minutes or longer pending the nurse and/or physician discretion of patient condition before discharge to Phase II. Please call the Sedation Physician to re-evaluate and complete post-note for discharge to Phase II area. Do NOT discharge from procedure sedation or Phase 1 until post- sedation malu luation note is complete by procedure /sedation MD Sedation Discharge Instructions to be given to the patient at discharge to home. [facility] Procedure Codes (Charges) Indication for Procedure Indication for procedure: NSTEMI
[2024-12-23] MEDS: ASPIRIN 81 MG ECTAB PO SCH (16:11)
[2024-12-23] MEDS: PANTOprazole 40 MG TAB PO SCH (16:12)
[2024-12-23] MEDS: buPROPion HCl 75 MG TABLET PO SCH (16:12)
[2024-12-23] MEDS: lisinopril 40 MG TAB PO SCH (16:13)
[2024-12-23] MEDS: SODIUM CHLORIDE 0.9% 1,000 ML IV SCH (16:14)
[2024-12-23] MEDS: MAGNESIUM SULFATE / D5W 1 GM/100 ML BAG IV SCH (16:14)
--- NOTE | 2024-12-23 19:27 | Hospitalist Progress Note ---
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 She was started on a heparin gtt and Trop went up to 7000- taken to labor specialist on 12/23 and had CLEMENTINA placed to mid LAD. ECHO normal. #Chest pain/NSTEMI/NSVT-Angina started after multiple episodes of N/V, with radiation to R arm and back (between shoulder blades) described as chest pressure and with burning sensation down R arm. CXR negative. Trop now peaked at 7454, now s/p CLEMENTINA to mid LAD on cardiac cath on 12/23. ECHO normal EF, no WMAs. Heparin gtt now off. Had 8 beat and 4 beat run of VT overnight before cath. Appreciate Cardiology management -start DAPT with ASA, Brilinta -continue atorvastatin and increase to 80mg- Lipid panel (11/2024) total 121, LDL 62, HDL 41, TG 101 -continue lisinopril -consider addition of beta aubrey if has more VT? Will d/w Cardiology -check CBC, BMP, mag in AM and keep lytes replete/optimal -check trop in AM #Nausea/Vomiting/Diarrhea-N/V x ~ 12-13x the day of arrival; no known contacts and no recent food intake concerning for illness. Likely viral GE, perhaps Norovirus as has been quite prevalent in the community. Now seems to be resolved. Stool sample ordered but not yet collected. Tolerating reg diet. Leukocytosis 17 on admission now normalized. KYB neg. -give NS at 80 mL/hr through 12/24 as was NPO all day for cardiac procedure. -antiemetics prn #T2DM- home regimen Basaglar 70U, Novolog (16U breakfast, 24U lunch, 30U dinner), ozempic 1mg, metformin 1000mg. Most recent A1C (11/2024) 7% -continue Lantus and Novolog here, adjust as needed - Hold outpatient regimen - Pharm glycemic management consult placed #HLD- Atorvastatin #HTN-BPs controlled -continue Lisinopril #JOSH- CPAP, continue #GERD- Famotidine, pantoprazole #Depression- Sertraline, bupropion VTE Prophylaxis: Heparin now stopped, on ASA and Brilinta Dispo: continued stay PCU. Discussed care with at length at bedside Admission and Anticipated Discharge Date Admission Date: December 22, 2024 Subjective Pt seen after return from cardiac cath.She ate dinner. No nausea, no abd pain, no more diarrhea. No further chest pressure or pain but feels "sore" in her chest. Is feeling a little bit short of breath but thinks it may be from being exhausted. Tele with 8 bt and 4 bt VT, otherwise NSR, PVCs, rates 70s Physical Exam Constitutional: WD/WN, vitals as above Respiratory: normal respiratory effort, lungs clear to auscultation Cardiovascular: RRR, no murmur, no edema Gastrointestinal (Abdomen): normal bowel sounds, soft, nontender, no hepatosplenomegaly Psychiatric: A+Ox3, euthymic affect Results & Data Results & Data Vital Signs (Past 12 Hours) Vital Signs Temp Pulse Pulse Resp BP Pulse Ox O2 Del Method 12/23/24 19:19 36.8 C 82 18 120/71 94 Room Air 12/23/24 14:54 36.7 C 75 15 121/74 93 Room Air 12/23/24 14:30 76 16 128/74 93 Room Air 12/23/24 14:15 78 18 128/72 93 Room Air 12/23/24 11:09 78 18 147/75 H 98 Room Air 12/23/24 07:55 36.6 C 72 18 137/81 95 Room Air Laboratory Results CBC, BMP, troponin x 2, magnesium reviewed PG Care Time/CCT Total # of Minutes Spent Total Time Spent with Patient: Total time spent is greater than 50% in coordination of care (as documented) at patient's floor/unit and/or counseling patient: Coding Level of Care Code 39415 SUB INP/OBS CARE 3/50MIN Diagnoses Chest pain R07.9 Acute non-ST elevation myocardial infarction (NSTEMI) I21.4 Nausea & vomiting R11.2 Type 2 diabetes mellitus with both eyes affected by mild nonproliferative retinopathy without macular edema, with long-term current use of insulin E11.3293; Z79.4 Diabetes mellitus longterm insulin use: with longterm use Diabetic retinopathy severity: with mild nonproliferative retinopathy Laterality: bilateral (4) 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
[2024-12-23] MEDS: FAMOTIDINE 40 MG TABLET PO SCH (20:29)
[2024-12-23] MEDS: CYANOCOBALAMIN (B-12) 500 MCG TABLET PO SCH (20:30)
[2024-12-23] MEDS: ATORVASTATIN 40 MG TAB PO SCH (20:30)
[2024-12-23] MEDS: SERTRALINE HCL 50 MG TABLET PO SCH (20:30)
[2024-12-23] MEDS: LANTUS PER UNIT CHARGE SC SCH (22:06)
[2024-12-23] MEDS: TICAGRELOR 90 MG TAB PO SCH (22:31)
[2024-12-24 07:46] LABS: Hemoglobin 12.3 g/dl (12.0-16.0); Mean Corpuscular Hemoglobin 29.4 pg (25.0-34.0); Mean Corpuscular Hgb Conc 33.2 g/dL (32.0-36.0); Mean Corpuscular Volume 88.5 fL (80.0-100.0); Mean Platelet Volume 10.5 fL (9.4-12.4); Platelet Count 227 K/uL (130-400); RDW Coefficient of Variation 14.6 % (11.5-14.5); Red Blood Count 4.18 M/uL (4.20-5.40); White Blood Count 5.43 K/ul (4.8-10.8)
[2024-12-24 08:08] LABS: Calcium 8.8 mg/dl (8.6-10.3); Creatinine Clr Calc Pharmacy 94.4 ml/min; Magnesium 2.2 mg/dl (1.7-2.4); Potassium 3.8 mmol/L (3.5-5.1)
[2024-12-24 08:19] LABS: Troponin I High Sensitivity 4462.4 pg/ml (0-14)
[2024-12-24] MEDS: LANTUS PER UNIT CHARGE SC SCH (08:43)
[2024-12-24 11:12] VITALS: RESP 18; TEMP 97.7; O2SAT 96
[2024-12-24 11:18] VITALS: BP 153/91
[2024-12-24 11:21] LABS: Adenovirus F 40/41 PCR Not Detected (NotDetected); Astrovirus PCR Not Detected (NotDetected); Campylobacter PCR Not Detected (NotDetected); Cryptosporidium PCR Not Detected (NotDetected); Cyclospora cayetanensis PCR Not Detected (NotDetected); Entamoeba histolytica PCR Not Detected (NotDetected); Enteroaggregative E.coli(EAEC) Not Detected (NotDetected); Enteropathogenic E.coli (EPEC) Not Detected (NotDetected); Enterotoxigenic E.coli (ETEC) Not Detected (NotDetected); Giardia lamblia PCR Not Detected (NotDetected); Plesiomonas shigelloides PCR Not Detected (NotDetected); Rotavirus A PCR Not Detected (NotDetected); Salmonella PCR Not Detected (NotDetected); Sapovirus PCR Not Detected (NotDetected); Shiga-like Toxin E.coli (STEC) Not Detected (NotDetected); Shigella/Enteroinvasive E.coli Not Detected (NotDetected); Vibrio cholerae PCR Not Detected (NotDetected); Vibrio species PCR Not Detected (NotDetected); Yersinia enterocolitica PCR Not Detected (NotDetected)
[2024-12-24 11:34] LABS: Norovirus GI/GII PCR DETECTED (NotDetected)
--- NOTE | 2024-12-24 11:49 | Cardiac Catheterization ---
ACC Data: Inside Sales Administrator Cardiac Status Clinical evaluation leading to the procedure CAD Presenation: Non STEMI Anginal Classification: CCS IV Heart Failure: No Cardiogenic Shock within 24 Hours: No Cardiac Arrest within 24 Hours: No Imaging Studies Past 6 Months: No Coronary Anatomy Dominant: Left Left Main (% Stenosis): Normal LAD (% Stenosis): Proximal (Calcified 40 to 50%), Mid (Calcified 50 to 60%, possible small dissection) and Distal (Calcified 50 to 70% hazy and tubular) D1 (% Stenosis): Normal D2 (% Stenosis): Normal Circumflex (% Stenosis): Normal OM1 (% Stenosis): Normal OM2 (% Stenosis): Proximal (Proximal 50 to 70%, too small for PCI) L PL1 (% Stenosis): Normal L PDA (% Stenosis): Normal RCA (% Stenosis): Normal Diagnostic Physicians Name: Farhan Jensen MD, PhD Closure Device Percutaneous Entry Location: Radial Closure Device: Radial Band Recommendations: Medical Therapy and/or Counseling and PCI without planned CABG PCI Indication: PCI for high risk Non-KRISTY Lesion Segment Name: Mid and distal LAD Culprit Artery: Yes Stenosis Prior to Rx (%): 50 to 70% IVUS: Yes FFR: Yes Ratio: less than or equal to 0.75% (Less then 0.90 for IFR) Pre-Procedure BASHIR Flow: 3 Previously Treated Lesion: No Lesion Complexity: High/C Lesion Length (mm): 12 and 12 respectively (mid and distal) Thrombus Present: No Bifurcation Lesion: No Guidewire Across Lesion: Yes Intraprocedure Events Significant Disection: No Perforation: No Cardiac Cath Procedure Full Procedure Date December 23, 2024 Pre-Procedure Diagnosis Pre-Procedure Diagnosis: Non STEMI AUC Score AUC Score: 08 Post-Procedure Diagnosis Post-Procedure Diagnosis: Severe CAD Procedure(s) Performed Procedure(s) Performed: Coronary Angiography, Drug Eluting Stent, IVUS and Fractional Flow [place] Crusher Plant Operator Farhan Jensen MD, PhD Estimated Blood Loss Estimated Blood Loss: 10 cc Medication(s) Medication(s): Fentanyl, Heparin, Hydralazine, Lidocaine 1%, Nicardipine, Nitroglycerin and Versed Summary of Findings Brief description: Patient was brought to the cardiac catheterization suite where she was shaved and prepped in a sterile fashion. Sedated using IV Versed and fentanyl. Soft tissues of the right wrist were anesthetized using 2 mL of 1% Xylocaine. The right radial artery was accessed with a modified Seldinger technique and a 6 Indian radial artery glide sheath was placed. Patient was provided anticoagulation with IV heparin and antispasmodics including nicardipine and nitroglycerin. Also provided hydralazine for hypertension. All catheters were advanced and exchanged over a 0.035 J-tip wire. Left coronary angiography in orthogonal views with a 5 Indian Cleghorn 4 diagnostic catheter. Right coronary angiography in orthogonal views with a 5 Indian Cleghorn 4 diagnostic catheter. Diagnostic catheters were removed. ACT was checked intermittently throughout the case and additional heparin provided as needed to maintain therapeutic anticoagulation. Because of the angiographic appearance of the LAD decision was made to further investigate for disease and potential small dissection. A 6 Indian EBU 3.0 guide catheter was used to engage the left main coronary. A BMW dorsal guidewire was advanced and positioned distally in the LAD. The IVUS catheter was then advanced and positioned just past the distal calcified lesion. Then, pullback was recorded from the distal vessel back through the mid vessel just to the end of the proximal vessel. IVUS catheter was removed. Decision was made to perform IFR across the lesions noted on the IVUS. BMW universal guidewire was removed. The Omni Doppler wave wire was then advanced through the guide catheter and positioned with its transducer just distal to the guide catheter tip. The system was flushed with normal saline. Pressures were normalized. The wire was then advanced and positioned with the transducer distal to the lesion of interest in the distal LAD. IFR was sampled. The wire was then pulled back under continuous IFR sampling all the way to the end of the proximal segment of the LAD. At that level the IFR was not hemodynamically significant. Based upon the combined findings of the IVUS and IFR study decision was made to proceed with PCI of 2 lesions in the LAD. Doppler wire was removed. BMW reversal guidewire was readvanced and positioned distally in the LAD. The more distal lesion was predilated with a 2.5 x 12 mm trek balloon at 8 xochilt. The balloon was deflated and pulled back across the more proximal of the lesions and there was inflated up to 12 xochilt. Balloon was then removed. A 2.5 x 15 mm Venu drug-eluting stent was then advanced across the distal lesion and deployed at 12 xochilt. Stent balloon was removed and a 2.75 x 15 mm [place] drug-eluting stent was then positioned across the mid LAD lesion where it was deployed at 13 xochilt. Stent balloon was removed. Coronary angiography was performed in orthogonal views. Guidewire removed. Guide catheter was removed. Patient received aspirin and Brilinta. ACT was checked and additional heparin was provided to cover the 30 minutes of anticoagulation until Brilinta was fully activated. Radial artery sheath was removed. Hemostasis was obtained using a TR band. Patient was hemodynamically stable and asymptomatic. She was returned to the recovery area. This ended the case. Coronary angiography findings: [id number] short vessel bifurcating into LAD and circumflex. No more than mild disease. ENW-dmpsl-xosrxjf and transapical. Proximal segment has a long calcified lesion of 40 to 50%. Gives a septal branch and a small first diagonal. There is then a small to medium caliber branching second diagonal. The mid LAD has calcification and then there is a plaque appearing angiographically up to 50 to 60% stenosis with possible dissection. The distal LAD has diffuse luminal irregularities with some mild calcification. There is a focal tubular appearing hazy stenosis angiographically 50 to 70% narrowed depending on view. There is BASHIR-3 flow in the LAD. LCx-this is large caliber and dominant. Travels in the AV groove. Gives a medium caliber OM1 which has mild luminal irregularities. There is a large caliber OM 2 with mild luminal irregularities and a proximal 50 to 70% stenosis before it branches. The circumflex then provides a small caliber posterolateral and a small to medium caliber PDA. The remainder of the circumflex and its branches have no more than mild luminal irregularities. RCA-small caliber and nondominant. No significant disease. IVUS of LAD- The mid and early distal LAD have diffuse eccentric disease. Some of this is fairly calcified. The 2 angiographically visible lesions appear most stenotic with up to 83% stenosis by this method. The more proximal of the lesions may have a small dissection but this is not well visualized possibly because of calcification. IFR of LAD- The IFR of the distal lesion was 0.79. On pullback the intervening segment had an IFR of 0.83-0.87. Once the transducer was proximal to the mid LAD lesion the IFR became not hemodynamically significant at 0.93-0.94. Therefore, the mid and distal lesion are considered hemodynamically significant. PCI of LAD- There is 0% residual stenosis at the distal lesion post PCI. There is 0% stenosis at the mid LAD lesion post PCI No evidence of dissection or perforation post PCI BASHIR-3 flow post PCI Summary: 1. Angiographically the patient appeared to have moderate to borderline severe disease in the LAD as described. Additionally, the mid LAD stenosis seem to have an associated small dissection flap. However, IVUS and IFR analysis suggest that angiographically we are underestimating the severity of the disease. The IFR suggested that the mid and distal lesions were both hemodynamically significant. Therefore the patient underwent implantation of 2 drug-eluting stents in the LAD to cover these lesions. No complications post PCI. 2. Patient will be on dual antiplatelet therapy with aspirin and Brilinta for 1 to 2 years. 3. Patient will be initiated on guideline directed medical therapy for secondary prevention of coronary disease to include; low-dose aspirin, high intensity statin therapy, beta-aubrey, and DONNA inhibitor/ARB as indicated. Hemodynamics Rest Ao:: 136/81 mmHg Final Ao: 160/84 mmHg LV: Not performed Recommendations Recommendations: Medical Therapy and/or Counseling and PCI without planned CABG Radiation Exposure (mGy) 2021 mGy, fluoroscopy time 14.4 minutes Contrast (mls) 160 cc Anesthesia Fentanyl 100 mcg, Versed 4 mg IV. Start time 1309, end time 1400 Procedural Complication(s) None Disposition Inside Sales Administrator Holding/Recovery I attest to the content of the Intraoperative Record and any orders documented therein. Any exceptions are noted below. [facility] Card Cath Procedure Codes Cardiac Catheterization Procedure 1: Cardiovascular Cath Procedures: 58812 Coronaries Procedure 2: Cardiovascular Cath Procedures: 37260 (Doppler) Pressure Wire Therapeutic Services & Ancillary Procedure 1: Cardiovascular Tx and Anc Procedures: 94621 IV Ultrasound (Coronary or Graft) Moderate Sedation Procedure 1: Sedation/Anesthesia: 92996 Mod Sedation by the same physician;Init15 Min Child Age 5 & Up (Initial 15 min, start time 1309) Procedure 2: Sedation/Anesthesia: 76510 Mod Sedation by the same physician; Ea [id number] Minutes (Additional 36 min, end time 1400) Stenting Procedure 1: Cardiovascular Stent Procedures: 16003 Perc transcatheter placement of intracoronary stent(s), with ang (LAD) PG Care Time/CCT Total # of Minutes Spent Total Time Spent with Patient: Total time spent is greater than 50% in coordination of care (as documented) at patient's floor/unit and/or counseling patient:
[2024-12-24] MEDS: METOPROLOL SUCC 25MG EXT REL TAB PO SCH (13:14)
--- NOTE | 2024-12-24 13:40 | Pharmacy Report ---
Pharmacy Glycemic Short Note 2 - Date of Service December 24, 2024 - Glycemic Short BSG Results (Last 24 hours): 12/23/24 12/23/24 12/24/24 16:15 20:55 06:55 Glucose POC Glucose 110 H 103 H 114 H 12/24/24 12/24/24 07:22 11:05 Glucose 124 H POC Glucose 110 H OUTPATIENT ANTIDIABETIC REGIMEN: * Toujeo 70 units SC HS * Aspart with meals: units, plus CF 1 unit for every 50 over 200mg/dl * Metformin 1000mg PO HS * Semaglutide 1mg SC Weekly on Mondays HbA1c: 7% (12/04/24) ASSESSMENT: 12/24/24: * POD #1 s/p cardiac catheterization, diet ordered postoperatively * Blood sugars have been well-controlled postoperatively * Basal insulin held last evening - will reorder for today 12/23/24: * 59 yo F admitted with CP NSTEMI, N/V, type 2 DM, on heparin drip, and NPO tod ay. * Given 35 units of Lantus last evening, blood sugars at goal while NPO, no NovoLog received today. * Continue basal bolus insulin while inpatient. PLAN FOR INPATIENT GLYCEMIC CONTROL: * Hold outpatient oral diabetes medications * Basal insulin * Lantus 10 units SC daily * Lantus 0-10-15 units SC HS * Bolus insulin * NovoLog per scale ACHS or Q6hrs while NPO * Goal Range: Low 110 mg/dL - High 140 mg/dL * Correction Factor: 20 mg/dL/unit * Nutritional / Prandial insulin per carb ratio of 1 unit per 7 grams CHO consumed
--- NOTE | 2024-12-24 13:47 | Cardiology Consultation ---
Date of Consultation December 24, 2024 Assessment & Plan (1) Acute non-ST elevation myocardial infarction (NSTEMI): Fairly modest myocardial injury. No significant change in her EF and no significant wall motion abnormalities identified. Relatively modest elevation in the troponin. I suspect she had underlying borderline angiographic disease but with her vomiting she may have ruptured or partially ruptured the mid LAD lesion. It may have even been some dissection associated with that which would not be unheard of in a female. In any case although the angiography appeared moderate disease the IVUS and IFR analysis suggested significant disease as is common with diabetics. We placed 2 separate drug-eluting stents to cover the most severe lesions including the possible dissection area. She has done well since that time. No recurrence of symptoms. She will remain on aspirin 81 mg daily and Brilinta 90 mg p.o. twice daily for 1 to 2 years. She was already on lisinopril 40 mg daily and a atorvastatin 40 mg daily. Her blood pressure has been okay to elevated and her heart rate has not been extremely low. Therefore I am going to add metoprolol succinate ER 25 mg once daily which can be titrated up as tolerated to achieve target heart rate and blood pressure. Strongly encouraged her to participate in cardiac rehab after discharge. She should be seen in the splicer operator office within 1 to 3 weeks of discharge. (2) Nausea & vomiting: This is clearly from the norovirus. Supportive treatment. No recurrence. The nausea and vomiting stopped before the onset of her chest pain so I do not think they are symptoms of her ACS. However, certainly could have provoked ACS. (3) Hypertension: Blood pressure has been at target or above target. We are adding metoprolol succinate ER once daily to improve her blood pressure, heart rate, and have her on full guideline directed medical therapy for coronary disease. (4) Mixed hyperlipidemia: Patient is high risk. Previous untreated total cholesterol was 258 mg/dL, LDL was 151 mg/dL, and HDL was 47 mg/dL. Her most recent lipid panel from November showed total cholesterol 121 mg/dL, HDL 41 mg/dL and LDL 62 mg/dL. The LDL is at target based on greater than or equal to 50% reduction from untreated LDL. Unfortunately, her HDL does not meet target for a female. With additional dietary modification and regular exercise she may be able to get that closer to target of 50 mg/dL. Plan As long as the patient is tolerating her medications and has no additional ongoing issues she would be appropriate for discharge from a cardiac standpoint. Office will call her regarding follow-up appointment. I will have cardiac rehab also contact her as an outpatient. History of Present Illness Reason for Consultation: Elevated troponin Chest pain Attending Physician: Taisha Roy MD History of Present Illness This 59-year-old diabetic female who developed abdominal discomfort on the morning of 12/22/2024. This progressed to include diarrhea nausea and vomiting. She has several bouts of this throughout the morning and as the day progressed she then developed chest pressure in the afternoon. This became fairly intense so she decided to seek medical attention. An EKG was performed with concerning findings for possible ischemia. She did not meet criteria for acute ST elevation [place]. She did receive medications and was then chest pain-free. She was kept overnight and had no recurrence of her chest pain. She did have some hypertensive episodes. Her lab work demonstrated elevated troponin which continued to rise. I had been aware of her from discussion with the ER physician on the evening before. I went to see her yesterday morning and after reviewing her echo and all aspects of her presentation decision was made to take her to the cardiac catheterization suite yesterday afternoon. She underwent diagnostic coronary angiography with angiographically borderline disease seen in the LAD. Possible ruptured plaque and dissection but no thrombus. Further analysis by IVUS and IFR demonstrated 2 lesions to be significant in the LAD. She continued without any further chest pain and we placed 2 drug-eluting stents in the LAD. 1 was distally across the lesion there and another was in the mid segment covering that lesion. She has a mild nonocclusive residual disease as described in the cath report. Her echocardiogram had demonstrated normal EF, no significant valvular pathology, and fairly normal-appearing wall motion. Admittedly, there were some segments which were not optimally visualized. I am seeing her today to complete the consultation which I did not complete yesterday. Patient tells me she has no chest pain, heaviness, or tightness. As it turns out, she is positive for the norovirus which likely triggered this admission. She denies dyspnea at this time. No syncope, orthopnea, PND, racing heartbeat, palpitations, or edema. She is accompanied by family and neither she nor her family have any questions or concerns at this time. Allergies Allergy/AdvReac Type Severity Reaction Status Date / Time No Known Allergies Allergy Unknown Verified 12/12/24 08:34 Home Medications Medication Instructions Recorded Confirmed Type omega-3 acid ethyl esters 1 gram 1 cap PO QPM 11/29/18 12/22/24 History capsule bupropion HCl 75 mg tablet 75 mg PO QAM 10/07/21 12/22/24 History famotidine 40 mg tablet 40 mg PO QPM 10/07/21 12/22/24 History sertraline 50 mg tablet 50 mg PO QPM 10/07/21 12/22/24 History cyanocobalamin (vitamin B-12) 1,000 mcg PO QPM 11/23/21 12/22/24 History 1,000 mcg tablet (Vitamin B-12) acetone (urine) test (Ketostix #25 ea 02/07/22 12/22/24 Rx strips) blood sugar diagnostic (Accu-Chek 05/17/22 12/22/24 History Guide test strips) aspirin 81 mg tablet,delayed 81 mg PO QAM 06/27/23 12/22/24 History release lisinopril 40 mg tablet 40 mg PO QAM 06/27/23 12/22/24 History metformin 500 mg tablet,extended 1,000 mg (2 x 500 mg) PO QPM #180 12/06/23 12/22/24 Rx release 24 hr tabs semaglutide 1 mg/dose (4 mg/3 mL) 1 mg (0.75 mL) subcut Q7D #3 mL 02/21/24 12/22/24 Rx subcutaneous pen injector pen needle, diabetic 32 gauge x #200 ea 05/15/24 12/22/24 Rx 1/4" (BD Ultra-Fine Micro Pen Needle) blood-glucose transmitter (Dexcom #1 ea 06/24/24 12/22/24 Rx G6 Transmitter device) insulin aspart U-100 100 unit/mL 75 unit (0.75 mL) subcut UD #30 mL 08/25/24 12/22/24 Rx (3 mL) subcutaneous pen (Novolog FlexPen U-100 Insulin aspart) blood-glucose sensor (Dexcom G6 #9 ea 10/29/24 12/22/24 Rx Sensor device) insulin glargine U-300 conc 300 70 unit subcut QPM 12/22/24 12/22/24 History unit/mL (1.5 mL) subcutaneous pen (Toujeo SoloStar U-300 Insulin) [id number] 1 tab PO QAM 12/22/24 12/22/24 History tablet (Multivitamin 50 Plus tablet) atorvastatin 80 mg tablet 80 mg PO DAILY #30 tabs 12/24/24 Rx metoprolol succinate 25 mg 25 mg PO QAM #30 tabs 12/24/24 Rx tablet,extended release 24 hr pantoprazole 40 mg tablet,delayed 40 mg PO BID #60 tabs 12/24/24 Rx release promethazine 25 mg tablet 12.5 mg (1/2 x 25 mg) PO TID PRN 12/24/24 Rx nausea and vomiting #7 tabs ticagrelor 90 mg tablet (Brilinta) 90 mg PO BID #60 tabs 12/24/24 Rx Patient History Medical History Family history of reaction to anesthesia father has a very difficult time coming out of anesthesia Hypertension Abdominal bloating Abdominal fullness Anxiety History of anesthesia reaction difficulty waking GERD (gastroesophageal reflux disease) Diabetes mellitus, type 2 IDDM Depression Hyperlipidemia Sleep apnea cpap Surgical History History of tenotomy (~06/2023) left achilles Hx of bilateral cataract extraction History of abdominal surgery removal of gastric band Hx of laparoscopic gastric banding History of dilatation and curettage History of carpal tunnel surgery of right wrist History of lumbar discectomy History of lumbar spinal fusion hardware in place History of colonoscopy History of esophagogastroduodenoscopy (EGD) History of tooth extraction History of wisdom tooth extraction Family History Father Family history of reaction to anesthesia severe difficulty waking, low heart rate Family history of diabetes mellitus Brother Family history of diabetes mellitus Aunt Family history of diabetes mellitus Mother Family hx of colon cancer Social History Smoking Status: Never smoker Second Hand Exposure: No; Do You Dip or Chew Tobacco: No; Hx Alcohol Use: No Hx Substance Use: No Preferred Language: Maldivian Communication Ability: Effective Cyber Security Administrator Required: No Beliefs That Will Affect Care: None Current Living Situation: Spouse Current Living Situation Comment: Lives with and mother Feels Safe at Home: Yes Safety Concerns: Feels Safe At This Time Assistive Devices: None Review of Systems Review of Systems: Negative except as per HPI Physical Exam Constitutional: WD/WN, vitals as above (Obese) Neck: No JVD or bruits Respiratory: Clear to auscultation bilaterally. No wheezing, rhonchi, or rales. Fair air movement. Cardiovascular: Regular rate and rhythm. S4 gallop. Do not appreciate any rubs or murmurs at this time. Musculoskeletal: no cyanosis or clubbing, extremities motor strength 5/5 Neurologic: Cognition is intact. Speech is fluent. No focal deficits. Psychiatric: A+Ox3, euthymic affect Results & Data Vital Signs (Past 12 Hours) Vital Signs Temp Pulse Pulse Resp BP Pulse Ox O2 Del Method 12/24/24 11:08 36.5 C 69 18 153/91 H 96 Room Air 12/24/24 10:12 Room Air 12/24/24 07:24 36.7 C 69 20 117/73 98 Room Air 12/24/24 06:55 63 12/24/24 02:07 36.6 C 70 18 124/75 95 Room Air PG Care Time/CCT Total # of Minutes Spent Total Time Spent with Patient: Total time spent is greater than 50% in coordination of care (as documented) at patient's floor/unit and/or counseling patient: Coding Level of Care Code 03663 IN/OBS CONSULT LVL 4,60M Diagnoses Acute non-ST elevation myocardial infarction (NSTEMI) I21.4 Nausea & vomiting R11.2 Primary hypertension I10 Hypertension type: primary hypertension Mixed hyperlipidemia E78.2 (3) Hypertension Hypertension type: primary hypertension Qualified Code(s): I10 - Essential (primary) hypertension
--- NOTE | 2024-12-24 13:48 | Discharge Summary ---
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 She was started on a heparin gtt and Trop went up to 7000- taken to labor specialist on 12/23 and had to CLEMENTINA placed to mid and distal LAD. ECHO normal. #Chest pain/NSTEMI/CAD/NSVT-Angina started after multiple episodes of N/V, with radiation to R arm and back (between shoulder blades) described as chest pressure and with burning sensation down R arm. CXR negative. Trop peaked at 7454, now s/p 2 CLEMENTINA to mid and distal LAD on cardiac cath on 12/23. ECHO normal EF, no WMAs. Heparin gtt now off. Had 8 beat and 4 beat run of VT overnight before cath and none since then. Appreciate Cardiology management -started DAPT with ASA, Brilinta x 1 to 2 years -continue atorvastatin and increase to 80mg- Lipid panel (11/2024) total 121, LDL 62, HDL 41, TG 101 -continue lisinopril -Add on Toprol-XL 25 mg p.o. daily -Follow-up with cardiology as an outpatient #Nausea/Vomiting/Diarrhea/norovirus-N/V x ~ 12-13x the day of arrival; no known contacts and no recent food intake concerning for illness. Tested positive for norovirus. Has some very mild residual nausea but is tolerating regular diet, no further diarrhea. Leukocytosis 17 on admission now normalized. KUB neg. she received IV fluids for hydration -Discharge to home with increased dose of Protonix to 40 Mg p.o. twice daily x 1 week then can return to once daily for possible gastritis from gastroenteritis -Gave small supply of promethazine as needed for nausea (QTc was prolonged on admission and down to 468 but would like to avoid QT prolonging medications like Zofran) #T2DM- home regimen Basaglar 70U, Novolog (16U breakfast, 24U lunch, 30U dinner), ozempic 1mg, metformin 1000mg. Most recent A1C (11/2024) 7% -Received very minimal amounts of insulin here compared to home dosing as she was mostly n.p.o. during her stay-recommend half dose of her usual insulin regimen at home until her diet returns to normal amounts -Hold metformin until 48 hours after cardiac catheterization -Resume home Ozempic #HLD- Atorvastatin increased to 80 mg daily for severe CAD #HTN-BPs are mildly elevated -continue Lisinopril and added metoprolol succinate #JOSH-continue CPAP #GERD- Famotidine, pantoprazole increased to twice daily x 1 week #Depression-continue sertraline, bupropion #Obesity-BMI 42.7 -Continue Ozempic and continue weight loss management VTE Prophylaxis: Heparin drip, on ASA and Brilinta Dispo: Stable for discharge to home. Discussed care with cardiology on the day of discharge. Discussed care with at bedside on day of discharge Notes For Next Care Provider Medication Changes From Visit See list Admission HPI Per Admitting Provider 59-year-old female PMHx HTN, GERD, T2DM, HLD, sleep apnea with CPAP, and depression presenting for chest pain associated N/V. Vomiting began at 0900 the day of arrival, occurring approximately 12-13 times throughout the day with the most recent occurrence being 1430. Around 1400, patient started to develop chest pain in her central chest which felt like a pressure/tightness and was an 8-9 out of 10 on the pain scale at its maximum. The pain radiated to her R arm and had a burning sensation. Also had radiation of pain between shoulder blades. Had had episodes of diarrhea, abdominal pain occurring just prior to episodes of vomiting. Patient states that she was not exposed to any sick contacts, did not eat anything additionally extremitas. Current complaint is a patient states she is still having some tightness in her chest but that has resolved some since having pain medications. Also feels weak from multiple episodes of vomiting and diarrhea. Patient states she has not had this happen before. States that she called her PCP who encouraged her to come to the ED because she was having chest pain that was radiating. ED evaluation reveals CBC WBC 17.90, CMP with ratio to 24, lipase 9; initial troponin 282.4, pending repeat; PT/INR pending; CXR without acute findings, KUB with nonobstructive bowel gas patterns; EKG NSR, RBBB, rate around 100 bpm. Provided with NSS 1L, Zofran, morphine, aspirin, and started on heparin while in ED. Please see Dr. Gibbs's attestation for adjustments/additions to treatment plan. Discharge Exam Constitutional WD/WN, vitals as above Respiratory normal respiratory effort, lungs clear to auscultation Cardiovascular RRR, no murmur, no edema Gastrointestinal (Abdomen) normal bowel sounds, soft, nontender, no hepatosplenomegaly Psychiatric A+Ox3, euthymic affect Discharge Plan Discharge Items Patient Disposition: Home - Self-Care Reason For Visit: CHEST PAIN, N/V Discharge Diagnosis: Coronary artery disease Non-ST elevation myocardial infarction Norovirus Condition on Discharge: Good Activity: As commented below Driving/Machine Use: Resume 3 days after discharge Non-emergency contact: Primary Care Provider and Bulldogger Call non-emergency contact if: you have any medication questions and your symptoms worsen Follow-up/Referrals: Farhan Jensen MD, PhD [Physician] - (Dr. Jensen's office will contact you with your follow-up appointment within the next 2 weeks.) Tank Gutierrez DO [Primary Care Provider] - (Follow-up within 1 to 2 weeks) Diet: Carb Consistent or DM2 and Heart Healthy Addtl Attending Provider Instructions: You were admitted with a heart attack and had 2 stents placed in the left anterior descending artery of the heart for significant blockages. You had improvement in your chest pain and will be sent home with new medications for the heart. 1 of these is called Brilinta. This is a blood thinner to help prevent the stent from clogging up and should be taken along with the aspirin-do not miss any doses of aspirin or Brilinta. Your atorvastatin will be increased to 80 mg a day to help prevent future heart disease and heart attacks. You are also started on metoprolol which is to be taken once daily. You also were found to have norovirus which causes vomiting and diarrhea. This is mostly resolved. Please increase your pantoprazole at home to twice a day for the next week to help with any inflammation of the stomach caused by this virus. You can also take Phenergan as needed for nausea at home. You may need to reduce the amount of insulin that you are taking at home until your diet and the amount of food you are eating returns to your usual amount. In the hospital here, you are only getting a total of about 20 units of insulin per day. You should take half your usual doses of insulin until your blood sugars start going above 200 and then resume your usual doses. Home Care: * Take your medications exactly as directed. Don't skip doses. * Remember that recovery after a heart attack takes time. Plan to rest for at lease 4-8 weeks while you recover. Then return to normal activity when your doctor says it's okay. * Ask your doctor about joining a heart rehabilitation program. * Tell your doctor if you are feeling depressed. Feelings of sadness are common after a heart attack, but it is important that you speak to someone if you are feeling overwhelmed by these feelings. * If you are having chest pain, call 911 for an ambulance. Do NOT drive yourself to the hospital. * Ask your family members to learn CPR. * Learn to take your own blood pressure and pulse. Keep a record of your results. Ask your doctor when you should seek emergency medical attention. He or she will tell you which blood pressure reading is dangerous. Lifestyle Changes: * Maintain a healthy weight. Get help to lose any extra pounds. * Cut back on salt. * Limit canned, dried, packaged, and fast foods. * Don't add salt to your food. * Season foods with herbs instead of salt when you cook. * Break the smoking habit. Enroll in a stop-smoking program to improve your chances of success. * Limit fatty foods. * Ask your doctor about having your lipid levels checked regularly. * Build up your activity according to your doctor's recommendation. * Ask your doctor when it's okay to resume sexual activity. * Tell your doctor about any erectile dysfunction (ED) medication you are taking. Some ED medications are not safe if you take certain heart medications. * Try to manage stress. Follow Up: It is important for you to keep your follow up appointments with your medical provider. ACTIVITY RECOMMENDATIONS: Excess manipulation of the wrist should be avoided for the next 24-48 hours. * No lifting over 2 pounds (approximately a 1/2 gallon of milk) with the utilized arm for 24 hours. * No strenuous activity such as bowling or tennis for 3 days. * Keep the site of the procedure covered with a bandage for 24 hours. *You may shower the day after the procedure. Do not take a tub bath or submerge the puncture site in water for the next 3 days. *Do not operate any motorized equipment for 3 days. SPECIAL CARE INSTRUCTIONS: The site may be slightly bruised and sore following your procedure. Should any of the following occur, contact the Dr. who performed your procedure. 1. Redness/inflammation, swelling, chills, or fever, or colored drainage at procedure site within 3-7 days after your procedure. 2. Coldness, discoloration, ongoing numbness, severe pain, or swelling. Expect mild tingling of hand and tenderness at the puncture site for up to three days. If this persists beyond three days, or other symptoms develop, notify the Dr. who performed your procedure. BLEEDING: If the procedure site on your wrist begins to bleed, do not panic 1. Place 1 or 2 fingers firmly just slightly above the insertion site to stop the bleeding. You may be able to feel your pulse as you hold pressure. 2. Lift your finger after 5 minutes to see if the bleeding has stopped. 3. Once the bleeding has stopped, gently wipe the wrist area clean with a bandage. * If the bleeding from your wrist does not stop after 10 minutes, or if there is a large amount of bleeding or spurting, call 911 (do not drive yourself to the hospital). SKIN IRRITATION: * You may experience some redness and/or swelling in the area where radiation was administered. If any skin irritation occurs, please contact your family physician. FOLLOW UP VISIT: Keep any scheduled doctor appointments. Pending Studies at Discharge: No Stand-Alone Forms: My [facility], Smoking Cessation Medications and DC Order Prescriptions: New Brilinta 90 mg Tablet 90 mg PO BID Qty: 60 0RF atorvastatin 80 mg tablet 80 mg PO DAILY Qty: 30 0RF metoprolol succinate 25 mg Tablet Extended Release 24 Hr 25 mg PO QAM Qty: 30 0RF promethazine 25 mg tablet 12.5 mg PO TID PRN (Reason: nausea and vomiting) Qty: 7 0RF Continued semaglutide 1 mg/dose (4 mg/3 mL) pen injector 1 mg subcut Q7D Qty: 3 12RF Patient Comments: mondays Rx Instructions: sunday (DME) pen needle, diabetic [BD Ultra-Fine Micro Pen Needle] 32 gauge x 1/4" needle See Rx Instructions .Route Qty: 200 11RF Rx Instructions: Use with Insulin 4 times a day (DME) Dexcom G6 Transmitter Device See Rx Instructions .Route Qty: 1 3RF Rx Instructions: Change every 90 days insulin aspart U-100 [Novolog FlexPen U-100 Insulin] 100 unit/mL (3 mL) insulin pen 75 unit subcut UD MDD 75 U Qty: 30 5RF Rx Instructions: TDD: 75 U in divided doses with meals. Breakfast 16 units, lunch 24 units, supper 30 units, + correction factor of 1 unit for every 50 points over 200 (DME) Dexcom G6 Sensor Device See Rx Instructions .Route Qty: 9 3RF Rx Instructions: Change every 10 days bupropion HCl 75 mg tablet 75 mg PO QAM famotidine 40 mg tablet 40 mg PO QPM sertraline 50 mg tablet 50 mg PO QPM (DME) Accu-Chek Guide test strips Strip See Rx Instructions .Route Rx Instructions: Test blood sugar once daily PRN (DME) Ketostix Strip See Rx Instructions .ROUTE .MEDSUPPLY Qty: 25 3RF Rx Instructions: Test if Glucose over 375 omega-3 acid ethyl esters 1 gram Capsule 1 cap PO QPM cyanocobalamin (vitamin B-12) [Vitamin B-12] 1,000 mcg Tablet 1,000 mcg PO QPM aspirin 81 mg tablet,delayed release (DR/EC) 81 mg PO QAM lisinopril 40 mg tablet 40 mg PO QAM Multivitamin 50 Plus Tablet 1 tab PO QAM insulin glargine U-300 conc [Toujeo SoloStar U-300 Insulin] 300 unit/mL (1.5 mL) insulin pen 70 unit subcut QPM Changed pantoprazole 40 mg Tablet,Delayed Release (Dr/Ec) 40 mg PO BID Qty: 60 0RF Held metformin 500 mg tablet extended release 24 hr 1,000 mg PO QPM Qty: 180 2RF Hold Instructions: Resume on 12/25/24. Discontinued atorvastatin 40 mg tablet 40 mg PO QPM Discharge Orders: Discharge Order (Routine); Ordered 12/24/24 Ordered By: Taisha Roy Admission Data Admit Date/Time: 12/22/24 20:29 Attending Provider: Taisha Roy Admit Provider: Sarahi Gibbs Primary Care Provider: Tank Gutierrez Other Providers: Sarahi Gibbs; Carlos Packer Hospital Stay Data Consultations 12/22/24 19:58 ED Decision to Admit Stat 12/22/24 22:56 Consult Cardiology Routine Procedures Performed Operation Date: 12/23/24 12:30 Actual Procedures p Cineradiography w/Routine Exam - Farhan Jensen MD, PhD s Cath, Coronaries ONLY (no LV) - Farhan Jensen MD, PhD s IVUS Coronary Single Vessel - Farhan Jensen MD, PhD s Fraction Flow [place] SGL Ves - Farhan Jensen MD, PhD s Drug Eluting Stent SGl Vessel - Farhan Jensen MD, PhD Diagnostic Imagining Performed 12/23/24 12:48 CL Cath Imgs for PACS use only Routine 12/23/24 16:02 CL IVUS Coronary Single Vessel Routine Echocardiogram Chest x-ray Pending Results Patient Have Any Pending Studies at Discharge: No Discharge Instructions Given to Patient (Per Discharging Provider) You were admitted with a heart attack and had 2 stents placed in the left anterior descending artery of the heart for significant blockages. You had improvement in your chest pain and will be sent home with new medications for the heart. 1 of these is called Brilinta. This is a blood thinner to help prevent the stent from clogging up and should be taken along with the aspirin-do not miss any doses of aspirin or Brilinta. Your atorvastatin will be increased to 80 mg a day to help prevent future heart disease and heart attacks. You are also started on metoprolol which is to be taken once daily. You also were found to have norovirus which causes vomiting and diarrhea. This is mostly resolved. Please increase your pantoprazole at home to twice a day for the next week to help with any inflammation of the stomach caused by this virus. You can also take Phenergan as needed for nausea at home. You may need to reduce the amount of insulin that you are taking at home until your diet and the amount of food you are eating returns to your usual amount. In the hospital here, you are only getting a total of about 20 units of insulin per day. You should take half your usual doses of insulin until your blood sugars start going above 200 and then resume your usual doses. Home Care: * Take your medications exactly as directed. Don't skip doses. * Remember that recovery after a heart attack takes time. Plan to rest for at lease 4-8 weeks while you recover. Then return to normal activity when your doctor says it's okay. * Ask your doctor about joining a heart rehabilitation program. * Tell your doctor if you are feeling depressed. Feelings of sadness are common after a heart attack, but it is important that you speak to someone if you are feeling overwhelmed by these feelings. * If you are having chest pain, call 911 for an ambulance. Do NOT drive your self to the hospital. * Ask your family members to learn CPR. * Learn to take your own blood pressure and pulse. Keep a record of your results. Ask your doctor when you should seek emergency medical attention. He or she will tell you which blood pressure reading is dangerous. Lifestyle Changes: * Maintain a healthy weight. Get help to lose any extra pounds. * Cut back on salt. * Limit canned, dried, packaged, and fast foods. * Don't add salt to your food. * Season foods with herbs instead of salt when you cook. * Break the smoking habit. Enroll in a stop-smoking program to improve your chances of success. * Limit fatty foods. * Ask your doctor about having your lipid levels checked regularly. * Build up your activity according to your doctor's recommendation. * Ask your doctor when it's okay to resume sexual activity. * Tell your doctor about any erectile dysfunction (ED) medication you are taking. Some ED medications are not safe if you take certain heart medication s. * Try to manage stress. Follow Up: It is important for you to keep your follow up appointments with your medical provider. ACTIVITY RECOMMENDATIONS: Excess manipulation of the wrist should be avoided for the next 24-48 hours. * No lifting over 2 pounds (approximately a 1/2 gallon of milk) with the utilized arm for 24 hours. * No strenuous activity such as bowling or tennis for 3 days. * Keep the site of the procedure covered with a bandage for 24 hours. *You may shower the day after the procedure. Do not take a tub bath or submerge the puncture site in water for the next 3 days. *Do not operate any motorized equipment for 3 days. SPECIAL CARE INSTRUCTIONS: The site may be slightly bruised and sore following your procedure. Should any of the following occur, contact the Dr. who performed your procedure. 1. Redness/inflammation, swelling, chills, or fever, or colored drainage at procedure site within 3-7 days after your procedure. 2. Coldness, discoloration, ongoing numbness, severe pain, or swelling. Expect mild tingling of hand and tenderness at the puncture site for up to three days. If this persists beyond three days, or other symptoms develop, notify the Dr. who performed your procedure. BLEEDING: If the procedure site on your wrist begins to bleed, do not panic 1. Place 1 or 2 fingers firmly just slightly above the insertion site to stop the bleeding. You may be able to feel your pulse as you hold pressure. 2. Lift your finger after 5 minutes to see if the bleeding has stopped. 3. Once the bleeding has stopped, gently wipe the wrist area clean with a bandage. * If the bleeding from your wrist does not stop after 10 minutes, or if there is a large amount of bleeding or spurting, call 911 (do not drive yourself to the hospital). SKIN IRRITATION: * You may experience some redness and/or swelling in the area where radiation was administered. If any skin irritation occurs, please contact your family physician. FOLLOW UP VISIT: Keep any scheduled doctor appointments. Total Time Total Time Spent Total Time Spent (In Minutes): 35 minutes Total Time Includes: Examination of the Patient, Discharge Planning, Medication Reconciliation and Communication With Other Providers Coding Level of Care Code 79139 INP/OBS DISCH >30 MIN Diagnoses Chest pain R07.9 Acute non-ST elevation myocardial infarction (NSTEMI) I21.4 Nausea & vomiting R11.2 Type 2 diabetes mellitus with both eyes affected by mild nonproliferative retinopathy without macular edema, with long-term current use of insulin E11.3293; Z79.4 Diabetes mellitus long term care administrator insulin use: with long term care administrator use Diabetic retinopathy severity: with mild nonproliferative retinopathy Laterality: bilateral
[2024-12-24 14:18] VITALS: PULSE 67
--- NOTE | 2024-12-24 15:42 | Electrocardiogram Report ---
Test Reason : Blood Pressure : */* mmHG Vent. Rate : 83 BPM Atrial Rate : 83 BPM P-R Int : 172 ms QRS Dur : 136 ms QT Int : 412 ms P-R-T Axes : 54 -61 22 degrees QTcB Int : 484 ms Normal sinus rhythm Left axis deviation Right bundle branch block Inferior infarct (cited on or before 22-Dec-2024) Abnormal ECG When compared with ECG of 22-Dec-2024 21:42, (unconfirmed) Criteria for Anterolateral infarct are no longer Present Confirmed by Carlos Packer ([id number]) on 12/24/2024 3:42:06 PM Referred By: REFERRED SELF Confirmed By: Carlos Packer
--- NOTE | 2024-12-24 16:34 | Electrocardiogram Report ---
Test Reason : Blood Pressure : */* mmHG Vent. Rate : 76 BPM Atrial Rate : 76 BPM P-R Int : 170 ms QRS Dur : 134 ms QT Int : 416 ms P-R-T Axes : 61 -61 -10 degrees QTcB Int : 468 ms Normal sinus rhythm Left axis deviation Right bundle branch block Inferior infarct (cited on or before 22-Dec-2024) Abnormal ECG When compared with ECG of 23-Dec-2024 03:58, (unconfirmed) Anterior infarct is now Present Anterolateral infarct is now Present T wave inversion more evident in Inferior leads T wave inversion now evident in Anterior leads Confirmed by Carlos Packer ([id number]) on 12/24/2024 4:34:25 PM Referred By: REFERRED SELF Confirmed By: Carlos Packer
--- NOTE | 2024-12-24 20:29 | Electrocardiogram Report ---
Test Reason : Blood Pressure : */* mmHG Vent. Rate : 100 BPM Atrial Rate : 100 BPM P-R Int : 156 ms QRS Dur : 122 ms QT Int : 388 ms P-R-T Axes : 51 264 31 degrees QTcB Int : 500 ms Normal sinus rhythm Right bundle branch block Inferior infarct , possibly acute Anterolateral infarct , age undetermined Abnormal ECG When compared with ECG of 13-Apr-2023 09:30, Inferior and anterior NV is new Confirmed by Carlos Packer ([id number]) on 12/24/2024 8:28:40 PM Referred By: REFERRED SELF Confirmed By: Carlos Packer
--- NOTE | 2024-12-24 20:42 | Electrocardiogram Report ---
Test Reason : Blood Pressure : */* mmHG Vent. Rate : 102 BPM Atrial Rate : 102 BPM P-R Int : 170 ms QRS Dur : 128 ms QT Int : 388 ms P-R-T Axes : 45 -66 21 degrees QTcB Int : 505 ms Sinus tachycardia Left axis deviation Right bundle branch block Inferior infarct (cited on or before 22-Dec-2024) Anterolateral infarct (cited on or before 22-Dec-2024) Abnormal ECG When compared with ECG of 22-Dec-2024 17:32, (unconfirmed) Serial changes of evolving Anterolateral infarct Present Serial changes of evolving Inferior infarct Present Confirmed by Carlos Packer ([id number]) on 12/24/2024 8:41:57 PM Referred By: REFERRED SELF Confirmed By: Carlos Packer
[2024-12-24] MEDS ORDERED: LANTUS PER UNIT CHARGE SC SCH (21:00)
== END 2024-12-24 15:02 | disposition home or self-care (01) | DRG 321 ==
LOC: ED 16:10 → SUATTDRO 20:29 → 2S 20:29
PROC: CLB.CCO (2024-12-23 12:30)